=== PATIENT | male | born 1990 | race Caucasian/White ===

== ENCOUNTER 2018-01-27 21:44 | Emergency (ER) | payer SELFPAY ==
[~2018-01-27] VITALS: Ht 167.6 cm; Wt 71.3 kg
[2018-01-27 21:46] VITALS: PULSE 90; TEMP 37; O2SAT 98; Ht 167.6 cm; Wt 71.3 kg
--- NOTE | 2018-01-28 18:34 | EMERGENCY ROOM VISIT NOTE ---
ED Visit Note First contact with patient: 21:55 CHIEF COMPLAINT: Eyebrow laceration HISTORY OF PRESENT ILLNESS: This 27-year-old male patient presents to the emergency department after cutting the left eyebrow just prior to arrival. He was evidently outside playing flashlight tag when he struck his head off a metal fence him a causing his injury. The bleeding has stopped. Denies weakness or numbness of the face. The patient rates the pain as dull and 1/10. The patient denies any other injuries. The patient's Tetanus shot is reportedly up to date. REVIEW OF SYSTEMS: A 6 system review of systems was completed with positives and pertinent negatives listed in the HPI. ALLERGIES: No known medication allergies MEDICATIONS: No chronic medication PMH: Otherwise healthy SOCIAL HISTORY: Lives locally PHYSICAL EXAM: Vital Signs: Reviewed Nurse's notes, vital signs stable. GENERAL : White male, in no acute distress, well-developed, well-nourished. SKIN: There is a curvilinear 1.5 cm long laceration on the lateral aspect of the left eyebrow just underneath the hair. The edges gape apart with traction. There is no foreign material in the wound and it looks clean. There is no bleeding. No deep structures such as tendons, bones, or significant blood vessels are seen in the base of the wound. Normal strength and movement of the eyelid and face. Capillary refill less than 2 seconds. Normal sensation to light and sharp touch. EMERGENCY DEPARTMENT COURSE: I examined the patient. Verbal consent was obtained to perform the procedure. Using sterile technique the wound was cleansed. The laceration was repaired using Dermabond with the wound edges being well approximated. The patient tolerated the procedure well. Hemostasis was achieved. The patient was discharged home in good condition with instructions as below Allergies Coded Allergies: Yellow [place]et (Verified Allergy, Severe, ANAPHYLAXIS, 01/27/18) Vital Signs Date Time Temp Pulse Resp B/P (MAP) Pulse Ox O2 Delivery O2 Flow Rate FiO2 01/27/18 21:46 37.0 90 18 98 Room Air Departure Information Impression Primary Impression: Laceration of eyebrow Dispostion Home / Self-Care Condition GOOD Forms HOME CARE DOCUMENTATION FORM, IMPORTANT VISIT INFORMATION Patient Instructions My [facility], ED Laceration Ext Skin Glue, ED Scar Tips to Minimize Additional Instructions You were seen and evaluated today on an emergency basis only. This is not a substitute for, or an effort to provide, complete comprehensive medical care. It is not possible to recognize and treat all injuries or illnesses in a single emergency department visit. For this reason it is recommended that you followup with your primary care physician with any ongoing or persistent symptoms. Your Dermabond will fall off over the next 2-3 days. Please try to leave this in place until then. You are welcome to return to the emergency department anytime with new, worsening, or concerning symptoms.
== END 2018-01-27 22:41 | disposition home or self-care (01) ==
LOC: C.EDB 21:47 → C.EDD 22:41
DX: S01.112A Laceration without foreign body of left eyelid and periocular area, initial encounter (principal); W22.09XA Striking against other stationary object, initial encounter; Z91.030 Bee allergy status